=== PATIENT | male | born 1955 | race Caucasian/White ===

== ENCOUNTER 2019-11-29 14:15 | Inpatient (IN) | payer MEDICARE, OTHER ==
[~2019-11-29] VITALS: Ht 167.6 cm; Wt 97.5 kg
[2019-11-29] MEDS ORDERED: MAGNESIUM HYDROXIDE 30 ML LIQUID UDC PO PRN (16:30)
[2019-11-29] MEDS ORDERED: BLOOD SUGAR DIAGNOSTIC 1 EACH STRIP VI ONE (16:30)
[2019-11-29] MEDS ORDERED: ACETAMINOPHEN 325 MG TABLET PO PRN (16:30)
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
[2019-11-29 16:53] VITALS: BP 110/51
[2019-11-29] MEDS ORDERED: ALBUTEROL SULFATE 2.5 MG/3 ML NEBU NEB PRN (17:15)
[2019-11-29] MEDS: NICOTINE 7 MG/24HR PATCH TD SCH (18:34)
[2019-11-29] MEDS: SIMVASTATIN 10 MG TABLET PO SCH (20:13)
[2019-11-29 20:47] VITALS: BP 112/54
[2019-11-29] MEDS: TEMAZEPAM 7.5 MG CAPSULE PO PRN (21:22)
[2019-11-29] MEDS: LORAZEPAM 0.5 MG TABLET PO PRN (22:24)
--- NOTE | 2019-11-30 06:07 | NUR ---
Received Pt at the nurse's station, angry, yelling, and demanding the phone. Pt is child-like, attention-seeking and needy. Affect is labile. Denies what is written on the Hold, states "I don't know" when asked the reason for admission. Denies SI/HI at this time. Requires frequent redirection. Restoril administered for insomnia, Ativan administered for anxiety, both effective. Refused shower this morning. Compliant with medications. VS stable, denied pain.
[2019-11-30 07:30] VITALS: BP 125/68
[2019-11-30] MEDS: LORAZEPAM 0.5 MG TABLET PO PRN ×2 (08:24→12:48)
[2019-11-30] MEDS: FUROSEMIDE 40 MG TABLET PO SCH (08:24)
[2019-11-30] MEDS: SPIRONOLACTONE 25 MG TABLET PO SCH (08:24)
[2019-11-30] MEDS: ALLOPURINOL 300 MG TABLET PO SCH (08:24)
[2019-11-30] MEDS: NICOTINE 7 MG/24HR PATCH TD SCH (08:24)
[2019-11-30] MEDS: METFORMIN HCL 500 MG TABLET PO SCH ×2 (08:24→17:51)
[2019-11-30] MEDS: BACLOFEN 10 MG TABLET PO SCH (08:25)
[2019-11-30] MEDS: FERROUS SULFATE 325 MG TABEC PO SCH (08:25)
[2019-11-30] MEDS: ASPIRIN 81 MG TAB.CHEW PO SCH (08:25)
[2019-11-30] MEDS: DOCUSATE SODIUM 100 MG CAPSULE PO SCH ×2 (08:25→17:51)
[2019-11-30] MEDS: ISOSORBIDE MONONITRATE 10 MG TABLET PO SCH ×2 (08:25→17:52)
[2019-11-30] MEDS: GABAPENTIN 100 MG CAPSULE PO SCH ×3 (08:25→17:51)
[2019-11-30] MEDS ORDERED: NICOTINE 7 MG/24HR PATCH TD SCH (09:00)
--- NOTE | 2019-11-30 11:59 | NUR ---
Social Work Initial Discharge Plan Note: Patient currently resides with Imani ([phone]) at [address] [facility] [address] [facility], [place] [address]; ([phone]) and lives with roommate. Per patient, he would want to go back home. sort line worker will work the patient and the MD regarding appropriate discharge planning. sort line worker will form a safe and proper discharge.
--- NOTE | 2019-11-30 12:17 | NUR ---
Social Work Family Contact Note: pick pack worker contacted patients Imani ([phone]) and discussed patients discharge plan and treatment plan.
[2019-11-30] MEDS ORDERED: risperiDONE 0.5 MG TABLET PO SCH (13:15)
[2019-11-30] MEDS: risperiDONE 1 MG TABLET PO SCH ×2 (13:28→21:10)
--- NOTE | 2019-11-30 15:16 | NUR ---
Social Work Note/Individual Therapy: track service worker met with patient for brief counseling adressing patient suicidal thoughts. track service worker assessed for patients level of suicidality. Patient denies SI. However, patient stated that in the past he has been "hearing voices that tell him to kill himself". This underwriter assessed if patient is currently experiencing those voices. Patient denied and stated that he is not hearing those voices anymore. This underwriter provided mental health referrals to patient such as [facility] Crisis Line ( ), [place] Suicide Prevention Lifeline ( ) , [facility] Substance Abuse Helpline ( ). track service worker encouraged patient to contact either family, hotline, or a professional if patient were to have suicidal thoughts. This underwriter also encouraged patient to alert either this underwriter or the nursing staff.
[2019-11-30 15:37] VITALS: BP 106/74
[2019-11-30] MEDS: BENZTROPINE MESYLATE 0.5 MG TABLET PO SCH (17:51)
[2019-11-30] MEDS: LORAZEPAM 1 MG TABLET PO PRN (20:12)
[2019-11-30 20:33] VITALS: BP 99/66
[2019-11-30] MEDS: SIMVASTATIN 10 MG TABLET PO SCH (21:10)
--- NOTE | 2019-11-30 22:00 | NUR ---
received to care, pleasant upon approach, but mostly isolative, in his room. continues to deny suicidal ideations. PRN ativan was given around 1999 for anxiety. pt reported good effects by 2099, and took his routine medications around that time. as of 2199, he appears to be asleep. no distress noted. will continue to monitor closely.
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
--- NOTE | 2019-12-01 06:00 | NUR ---
slept 7.5 hours, total. continues to sleep. no distress noted.
[2019-12-01] MEDS: ALLOPURINOL 300 MG TABLET PO SCH (08:45)
[2019-12-01] MEDS: FUROSEMIDE 40 MG TABLET PO SCH (08:45)
[2019-12-01] MEDS: BACLOFEN 10 MG TABLET PO SCH (08:45)
[2019-12-01] MEDS: GABAPENTIN 100 MG CAPSULE PO SCH ×3 (08:45→16:31)
[2019-12-01] MEDS: BENZTROPINE MESYLATE 0.5 MG TABLET PO SCH ×2 (08:46→16:31)
[2019-12-01] MEDS: DOCUSATE SODIUM 100 MG CAPSULE PO SCH ×2 (08:46→16:31)
[2019-12-01] MEDS: ISOSORBIDE MONONITRATE 10 MG TABLET PO SCH ×2 (08:46→16:31)
[2019-12-01] MEDS: ASPIRIN 81 MG TAB.CHEW PO SCH (08:46)
[2019-12-01] MEDS: FERROUS SULFATE 325 MG TABEC PO SCH (08:46)
[2019-12-01] MEDS: NICOTINE 7 MG/24HR PATCH TD SCH (08:47)
[2019-12-01] MEDS: METFORMIN HCL 500 MG TABLET PO SCH ×2 (08:51→17:51)
[2019-12-01] MEDS: SPIRONOLACTONE 25 MG TABLET PO SCH (08:51)
[2019-12-01] MEDS: risperiDONE 1 MG TABLET PO SCH ×2 (08:51→20:26)
[2019-12-01 10:20] VITALS: BP 101/56
[2019-12-01] MEDS: LORAZEPAM 1 MG TABLET PO PRN (13:01)
[2019-12-01 14:32] LABS: BASOPHILS % (AUTO) 0.3 % (0.0-2.0); EOSINOPHILS # (AUTO) 0.1 K/uL (0.0-0.7); EOSINOPHILS % (AUTO) 1.4 % (0.0-7.0); HEMATOCRIT 42.9 % (36.7-47.1); HEMOGLOBIN 14.3 g/dL (12.5-16.3); LYMPHOCYTES # (AUTO) 1.8 K/uL (20.0-40.0); LYMPHOCYTES % (AUTO) 23.7 % (20.5-51.5); MEAN CORPUSCULAR HEMOGLOBIN 31.7 uug (23.8-33.4); MEAN CORPUSCULAR HGB CONC 33 g/dL (32.5-36.3); MEAN CORPUSCULAR VOLUME 95.3 fL (73.0-96.2); MONOCYTES # (AUTO) 0.6 K/uL (2.0-10.0); MONOCYTES % (AUTO) 8.5 % (0.0-11.0); NEUTROPHILS % (AUTO) 66.1 % (38.5-71.5); PLATELET COUNT (AUTO) 165 K/uL (152-348); RED BLOOD CELL COUNT(AUTO) 4.51 MIL/uL (4.06-5.63); WHITE BLOOD COUNT (AUTO) 7.6 K/uL (3.6-10.2)
[2019-12-01] MEDS: MAG HYDROX/AL HYDROX/SIMETH 30 ML LIQUID UDC PO PRN (14:34)
--- NOTE | 2019-12-01 14:46 | NUR ---
Patient complaint of stomach pain. mylanta 30mg prn given. MD taylor aware of c/o of pain at night. ordered norco 5-325mg every 6 hrs PRN. no complaint of pain/discomfort as of this time. will continue monitor
[2019-12-01 14:50] LABS: BILIRUBIN,TOTAL 0.2 mg/dL (0.2-1.0); MAGNESIUM 1.6 mg/dL (1.8-2.4); PHOSPHOROUS 3.5 mg/dL (2.5-4.9); POTASSIUM 4.6 mmol/L (3.5-5.1); TOTAL PROTEIN, SERUM 7.6 g/dL (6.4-8.2)
--- NOTE | 2019-12-01 15:28 | NUR ---
Patient refuse blood draw this morning. Patient reorient and education given. Patient agreed blood draw this PM. not in distress. will continue monitor
[2019-12-01 16:21] VITALS: BP 119/65
[2019-12-01] MEDS: HYDROCODONE/APAP 5-325MG TABLET PO PRN (17:52)
--- NOTE | 2019-12-01 19:18 | NUR ---
Patient applied clonidine patch for high BP every 7days. Applied on left upper back. Applied z-guard on red sacrum. will continue monitor
[2019-12-01] MEDS: POTASSIUM CHLORIDE 8 MEQ TAB.PRT.SR PO SCH (20:26)
[2019-12-01] MEDS: SIMVASTATIN 10 MG TABLET PO SCH (20:26)
[2019-12-01 20:27] VITALS: BP 101/57
[2019-12-01] MEDS: TEMAZEPAM 7.5 MG CAPSULE PO PRN (21:46)
--- NOTE | 2019-12-01 22:30 | NUR ---
received to care, pleasant upon approach, but mostly isolative, in his room. continues to deny suicidal ideations. compliant with medications and staff direction. PRN restoril was given at 2147, for insomnia. as of 2229, he appears to be asleep. no distress noted. will continue to monitor closely.
[2019-12-02] MEDS: LORAZEPAM 1 MG TABLET PO PRN ×2 (01:22→11:52)
--- NOTE | 2019-12-02 01:22 | NUR ---
PRN ativan, given for anxiety.
--- NOTE | 2019-12-02 06:51 | NUR ---
slept well. continues to sleep. no distress noted.
[2019-12-02 07:30] VITALS: BP 105/44
--- NOTE | 2019-12-02 08:05 | NUR ---
Social Work APS Report: This typewriter tester filed an APS report with [facility] (Intake ID [id number]) for concerns with living situation.
[2019-12-02] MEDS: ASPIRIN 81 MG TAB.CHEW PO SCH (08:41)
[2019-12-02] MEDS: FERROUS SULFATE 325 MG TABEC PO SCH (08:41)
[2019-12-02] MEDS: DOCUSATE SODIUM 100 MG CAPSULE PO SCH ×2 (08:41→17:11)
[2019-12-02] MEDS: BENZTROPINE MESYLATE 0.5 MG TABLET PO SCH ×2 (08:41→17:11)
[2019-12-02] MEDS: risperiDONE 1 MG TABLET PO SCH (08:41)
[2019-12-02] MEDS: SPIRONOLACTONE 25 MG TABLET PO SCH (08:42)
[2019-12-02] MEDS: NICOTINE 7 MG/24HR PATCH TD SCH (08:42)
[2019-12-02] MEDS: GABAPENTIN 100 MG CAPSULE PO SCH ×3 (08:42→17:26)
[2019-12-02] MEDS: METFORMIN HCL 500 MG TABLET PO SCH ×2 (08:42→17:11)
[2019-12-02] MEDS: BACLOFEN 10 MG TABLET PO SCH (08:42)
[2019-12-02] MEDS: FUROSEMIDE 40 MG TABLET PO SCH (08:43)
[2019-12-02] MEDS: ALLOPURINOL 300 MG TABLET PO SCH (08:43)
[2019-12-02] MEDS: POTASSIUM CHLORIDE 8 MEQ TAB.PRT.SR PO SCH (08:43)
[2019-12-02] MEDS: ISOSORBIDE MONONITRATE 10 MG TABLET PO SCH ×2 (08:46→17:00)
--- NOTE | 2019-12-02 10:03 | NUR ---
Social Work Coordination of Care Note: loft worker head spoke with Christianne Narayan ([phone]) from [address], [place] [address]; ([phone]) which is a Partial Hospitalization Program (PHP). Per Christianne, she stated that they will provide patient with transportation and explained more about the program. Per Christianne, she stated that upon discharge to call this abstract writer to schedule the program.
--- NOTE | 2019-12-02 11:39 | NUR ---
Social Work Substance Abuse Intervention Note: Patient was provided with a brief substance abuse intervention and referred to [facility] , [facility] , and [facility] . Addendum: 12/02/19 at 1406 by VENU CISNEROS Patient was provided with a brief substance abuse intervention and referred to [facility] [address] [place] [address]; ([phone]), [facility], [address], [place] [address]; ([phone]), and [facility] .
--- NOTE | 2019-12-02 11:49 | NUR ---
Social Work Note: telephone sex worker offered patient resources for [facility] Partial Hospitalization Program (PHP); ([phone]). Patient refused and became agitated. Patient stated that he "has a lot of doctor appointments to attend too". This literary writer explained with details what the program is and how it is beneficial. This literary writer also addressed that the program will provide transportation, but patient refused. This literary writer will provide with resources for patient upon discharge.
--- NOTE | 2019-12-02 13:10 | NUR ---
Social Work Coordination of Care: coffee plantation worker contacted patients center [facility] ([phone]) and was unable to reach bottle caser. This sign writer letterer or painter left a voicemail to call back.
--- NOTE | 2019-12-02 13:51 | NUR ---
Social Work Family Contact Note: trim line worker contacted patient's Imani ([phone]) and this screen writer wanted to ask more questions in regard to patients program [facility]. While this screen writer was asking questions Imani was agitated and was frustrated that "staff keeps calling her". This screen writer explained that it is hospitals duty to call and verify information that is needed.
--- NOTE | 2019-12-02 13:53 | NUR ---
Social Work Coori Addendum: 12/02/19 at 1354 by VENU CISNEROS disregard this note.
--- NOTE | 2019-12-02 13:54 | NUR ---
Social Work Coordination of Care: poultry farmworker spoke to Mariam seed corn production manager from [facility] ([phone]) who arranged patient to see his psychiatrist Dr.Gillespie Kaur on December 13 at 1PM and arranged an appointment with patients primary doctor Quincy Alejandro on December 13 at 2PM. This scientific writer also informed Mariam about [facility] ([phone]) and stated that she will arrange it. This scientific writer will fax patients H & P psychiatric notes, progress notes, and medication to Mariam ([phone]). Mariam shared that at [facility] they have programs for the patient and that he has been part of it.
[2019-12-02] MEDS: HYDROCODONE/APAP 5-325MG TABLET PO PRN (17:26)
[2019-12-02] MEDS ORDERED: OLANZAPINE 10 MG VIAL IM ONE (19:45)
[2019-12-02] MEDS ORDERED: risperiDONE 1 MG TABLET PO SCH (21:00)
[2019-12-02] MEDS: SIMVASTATIN 10 MG TABLET PO SCH (21:01)
[2019-12-02] MEDS: risperiDONE 2 MG TABLET PO SCH (21:01)
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
[2019-12-03 07:30] VITALS: BP 120/66
--- NOTE | 2019-12-03 09:51 | NUR ---
Social Work Individual Therapy Note: ice cream vault worker met with patient for brief counseling. ice cream vault worker assessed for patients level of suicidality. Patient denies SI. This automotive service writer assessed if patient is experiencing auditory hallucination as mentioned before and stated that "he hears voices that tell him to kill himself". Per patient, he stated that he is currently not hearing any voices and is not SI. This automotive service writer provided mental health referrals to patient such as [facility] Crisis Line ( ), [place] Suicide Prevention Lifeline ( ) , [facility] Substance Abuse Helpline ( ). ice cream vault worker encouraged patient to contact either family, hotline, or a professional if patient were to have suicidal thoughts. This automotive service writer also encouraged patient to alert either this automotive service writer or the nursing staff.
[2019-12-03] MEDS: NICOTINE 7 MG/24HR PATCH TD SCH (09:55)
[2019-12-03] MEDS: ALLOPURINOL 300 MG TABLET PO SCH (09:56)
[2019-12-03] MEDS: ISOSORBIDE MONONITRATE 10 MG TABLET PO SCH ×2 (09:56→16:51)
[2019-12-03] MEDS: BACLOFEN 10 MG TABLET PO SCH (09:56)
[2019-12-03] MEDS: GABAPENTIN 100 MG CAPSULE PO SCH ×3 (09:56→16:50)
[2019-12-03] MEDS: DOCUSATE SODIUM 100 MG CAPSULE PO SCH ×2 (09:56→16:52)
[2019-12-03] MEDS: POTASSIUM CHLORIDE 8 MEQ TAB.PRT.SR PO SCH (09:56)
[2019-12-03] MEDS: BENZTROPINE MESYLATE 0.5 MG TABLET PO SCH ×2 (09:57→16:52)
[2019-12-03] MEDS: FERROUS SULFATE 325 MG TABEC PO SCH (09:57)
[2019-12-03] MEDS: risperiDONE 2 MG TABLET PO SCH ×2 (09:57→20:05)
[2019-12-03] MEDS: SPIRONOLACTONE 25 MG TABLET PO SCH (09:58)
[2019-12-03] MEDS: METFORMIN HCL 500 MG TABLET PO SCH ×2 (09:58→16:51)
[2019-12-03] MEDS: ASPIRIN 81 MG TAB.CHEW PO SCH (09:59)
[2019-12-03] MEDS: FUROSEMIDE 40 MG TABLET PO SCH (09:59)
--- NOTE | 2019-12-03 10:00 | NUR ---
Social Work PC Hearing Notification Note: wafer production lead worker contacted patient's Imani ([phone]), and notified patients probable cause of hearing today. This technical publications writer left a voicemail.
--- NOTE | 2019-12-03 12:25 | NUR ---
Social Work Note: dairy cattle farm worker met with patient and patient stated that yesterday he was combative because he only wanted his "ativan". Patient stated that "everyone is trying to keep him away from his ". This food writer explained that no one is keeping him from his . This food writer actively listened and provided emotional support.
[2019-12-03] MEDS: LORAZEPAM 1 MG TABLET PO PRN (12:53)
[2019-12-03 16:00] VITALS: BP 108/70
[2019-12-03] MEDS: HYDROCODONE/APAP 5-325MG TABLET PO PRN (18:25)
[2019-12-03] MEDS: SIMVASTATIN 10 MG TABLET PO SCH (20:05)
[2019-12-03 20:25] VITALS: BP 124/65
[2019-12-03] MEDS: TEMAZEPAM 7.5 MG CAPSULE PO PRN (22:01)
[2019-12-04] MEDS: LORAZEPAM 1 MG TABLET PO PRN (00:13)
[2019-12-04 07:30] VITALS: BP 128/69
[2019-12-04] MEDS: GABAPENTIN 100 MG CAPSULE PO SCH ×3 (09:23→17:52)
[2019-12-04] MEDS: BENZTROPINE MESYLATE 0.5 MG TABLET PO SCH ×2 (09:23→17:52)
[2019-12-04] MEDS: DOCUSATE SODIUM 100 MG CAPSULE PO SCH ×2 (09:23→17:52)
[2019-12-04] MEDS: METFORMIN HCL 500 MG TABLET PO SCH ×2 (09:24→17:52)
[2019-12-04] MEDS: ASPIRIN 81 MG TAB.CHEW PO SCH (09:24)
[2019-12-04] MEDS: risperiDONE 2 MG TABLET PO SCH ×2 (09:24→20:01)
[2019-12-04] MEDS: FERROUS SULFATE 325 MG TABEC PO SCH (09:24)
[2019-12-04] MEDS: ISOSORBIDE MONONITRATE 10 MG TABLET PO SCH ×2 (09:28→17:00)
[2019-12-04] MEDS: BACLOFEN 10 MG TABLET PO SCH (09:29)
[2019-12-04] MEDS: FUROSEMIDE 40 MG TABLET PO SCH (09:29)
[2019-12-04] MEDS: ALLOPURINOL 300 MG TABLET PO SCH (09:29)
[2019-12-04] MEDS: SPIRONOLACTONE 25 MG TABLET PO SCH (09:29)
[2019-12-04] MEDS: NICOTINE 7 MG/24HR PATCH TD SCH (09:29)
[2019-12-04] MEDS: POTASSIUM CHLORIDE 8 MEQ TAB.PRT.SR PO SCH (09:29)
--- NOTE | 2019-12-04 11:19 | NUR ---
Social Work Family Contact Note: remelt worker contacted patient's Imani ([phone]) and stated if she is able to provide transportation either a family molded goods spot picker or taxi. Per Imani, she stated that she is unable to drive and that she does not have any money to provide transportation.
--- NOTE | 2019-12-04 11:20 | NUR ---
Social Work Note: wheel worker contacted Mariam patient's showcase trimmer from [facility] ([phone]) but was unable to reach. This comic writer left a voicemail in regard to if they will provide transportation for patient back home. This comic writer also contacted [facility] ([phone]) and spoke to Trisha who stated that they do not provide transportation and that the hospital should provide it.
--- NOTE | 2019-12-04 11:52 | NUR ---
Social Work Coordination of Care: laundry worker spoke to Minifer on-call lead dental assistant from [facility] ([phone]) and this investigative writer addressed if they are able to provide transportation, she stated that she will have to confirm this with her solution manager and will get back to this investigative writer.
--- NOTE | 2019-12-04 12:57 | NUR ---
Social Work Coordination of Care: ostrich farm worker was contacted by [facility]'s Vendor Helen ([phone]) who stated that they will provide transportation for patient at 10-11AM.
--- NOTE | 2019-12-04 13:17 | NUR ---
Social Work Coordination of Care: fire crew worker contacted Cecy from [facility] ([phone]) who approved.
--- NOTE | 2019-12-04 14:25 | NUR ---
Social Work Family Contact: hot iron worker contacted patient's Imani ([phone]) and shared that [facility] will provide patient's transportation on 11/08/19.
[2019-12-04 17:23] VITALS: BP 105/66
[2019-12-04] MEDS: SIMVASTATIN 10 MG TABLET PO SCH (20:01)
[2019-12-04 21:07] VITALS: BP 137/70
[2019-12-04] MEDS: TEMAZEPAM 7.5 MG CAPSULE PO PRN (22:37)
[2019-12-05] MEDS: LORAZEPAM 1 MG TABLET PO PRN (00:38)
[2019-12-05] MEDS: MAG HYDROX/AL HYDROX/SIMETH 30 ML LIQUID UDC PO PRN ×2 (00:38→21:22)
[2019-12-05 07:30] VITALS: BP 103/66
[2019-12-05] MEDS: BENZTROPINE MESYLATE 0.5 MG TABLET PO SCH ×2 (09:17→16:54)
[2019-12-05] MEDS: DOCUSATE SODIUM 100 MG CAPSULE PO SCH ×2 (09:17→16:54)
[2019-12-05] MEDS: SPIRONOLACTONE 25 MG TABLET PO SCH (09:18)
[2019-12-05] MEDS: ASPIRIN 81 MG TAB.CHEW PO SCH (09:18)
[2019-12-05] MEDS: risperiDONE 2 MG TABLET PO SCH ×2 (09:18→20:07)
[2019-12-05] MEDS: NICOTINE 7 MG/24HR PATCH TD SCH (09:19)
[2019-12-05] MEDS: POTASSIUM CHLORIDE 8 MEQ TAB.PRT.SR PO SCH (09:19)
[2019-12-05] MEDS: ALLOPURINOL 300 MG TABLET PO SCH (09:19)
[2019-12-05] MEDS: BACLOFEN 10 MG TABLET PO SCH (09:20)
[2019-12-05] MEDS: FUROSEMIDE 40 MG TABLET PO SCH (09:20)
[2019-12-05] MEDS: ISOSORBIDE MONONITRATE 10 MG TABLET PO SCH ×2 (09:21→16:56)
[2019-12-05] MEDS: GABAPENTIN 100 MG CAPSULE PO SCH ×3 (09:29→16:54)
[2019-12-05] MEDS: FERROUS SULFATE 325 MG TABEC PO SCH (09:31)
[2019-12-05] MEDS: METFORMIN HCL 500 MG TABLET PO SCH ×2 (09:32→18:04)
[2019-12-05 16:00] VITALS: BP 111/60
[2019-12-05 20:00] VITALS: BP 122/69
[2019-12-05] MEDS: SIMVASTATIN 10 MG TABLET PO SCH (20:07)
[2019-12-05] MEDS: TEMAZEPAM 7.5 MG CAPSULE PO PRN (22:09)
[2019-12-06] MEDS: LORAZEPAM 1 MG TABLET PO PRN ×3 (02:36→20:55)
[2019-12-06 07:30] VITALS: BP 110/72
[2019-12-06] MEDS: FERROUS SULFATE 325 MG TABEC PO SCH (08:43)
[2019-12-06] MEDS: DOCUSATE SODIUM 100 MG CAPSULE PO SCH ×2 (08:43→16:17)
[2019-12-06] MEDS: risperiDONE 2 MG TABLET PO SCH ×2 (08:43→21:53)
[2019-12-06] MEDS: GABAPENTIN 100 MG CAPSULE PO SCH ×3 (08:43→16:19)
[2019-12-06] MEDS: METFORMIN HCL 500 MG TABLET PO SCH ×2 (08:43→17:24)
[2019-12-06] MEDS: ASPIRIN 81 MG TAB.CHEW PO SCH (08:43)
[2019-12-06] MEDS: BENZTROPINE MESYLATE 0.5 MG TABLET PO SCH ×2 (08:44→16:18)
[2019-12-06] MEDS: NICOTINE 7 MG/24HR PATCH TD SCH (08:44)
[2019-12-06] MEDS: ISOSORBIDE MONONITRATE 10 MG TABLET PO SCH ×2 (08:45→16:17)
[2019-12-06] MEDS: POTASSIUM CHLORIDE 8 MEQ TAB.PRT.SR PO SCH (08:45)
[2019-12-06] MEDS: BACLOFEN 10 MG TABLET PO SCH (08:46)
[2019-12-06] MEDS: FUROSEMIDE 40 MG TABLET PO SCH (08:46)
[2019-12-06] MEDS: SPIRONOLACTONE 25 MG TABLET PO SCH (08:46)
[2019-12-06] MEDS: ALLOPURINOL 300 MG TABLET PO SCH (08:46)
[2019-12-06 16:00] VITALS: BP 114/76
[2019-12-06] MEDS: HYDROCODONE/APAP 5-325MG TABLET PO PRN (16:16)
[2019-12-06 20:39] VITALS: BP 114/74
[2019-12-06] MEDS: SIMVASTATIN 10 MG TABLET PO SCH (20:55)
--- NOTE | 2019-12-06 20:55 | NUR ---
pt was offered ativan, but he refused, spitting it out. med was wasted in the pyxis, but i was unable to undo in the emar
[2019-12-06] MEDS: TEMAZEPAM 7.5 MG CAPSULE PO PRN (22:30)
--- NOTE | 2019-12-06 23:30 | NUR ---
received to care, pleasant, but anxious and needy, upon approach. PRN restoril was given at 2229 for anxiety. as of 2329, he appears to be asleep. no distress noted. will continue to monitor closely.
[2019-12-07] MEDS: LORAZEPAM 1 MG TABLET PO PRN (02:20)
--- NOTE | 2019-12-07 05:00 | NUR ---
slept 3 hours. continues to sleep. no distress noted.
[2019-12-07 07:30] VITALS: BP 127/66
--- NOTE | 2019-12-07 08:08 | NUR ---
Social Work Discharge Note: Patient will be discharged home to [address], [place] [address]; ([phone]). Patients [facility] Vendor Helen ([phone]) will provide transportation for patient at 10-11AM. Patients Imani ([phone]) is agreeable with patients discharge plan. Upon discharge, patient appear to be calm, cooperative and happy to be going home. Patient denies suicidal and homicidal ideation. Patient will follow up with his primary and psychiatrist at [facility] [address] [place] [address]; ([phone]). manager workers compensation spoke to Mariam director case management from [facility] ([phone]) who arranged patient to see his (psychiatrist) Dr.Gillespie Kaur on December 13 at 1PM and arranged an appointment with patients (primary doctor) Quincy Alejandro on December 13 at 2PM and will to discuss smoking cessation and address substance abuse dependency. Patient was provided with a brief substance abuse intervention and referred to [facility] [address] [facility], [place] [address]; ([phone]), [facility], [address], [place] [address]; ([phone]), and [facility] . Patient was also provided with resources for [facility] Care (Partial Hospitalization Program (PHP); [phone]). manager workers compensation spoke to Cecy ([phone]) scheduled home health services through [facility] [address], [address], [place] [address] and a nurse will be sent to evaluate patient on 12/08/2019. Patient was provided with outpatient mental health resources to [facility] Crisis Line , and the National Suicide Prevention Lifeline . Patient presented with euthymic mood and congruent affect.
--- NOTE | 2019-12-07 08:09 | NUR ---
Social Work Firearms Report: Data Support Analyst completed and submitted a [employer] firearms report for [address] grave disability certification. A copy of report has been placed in patient chart.
[2019-12-07] MEDS: GABAPENTIN 100 MG CAPSULE PO SCH (09:24)
[2019-12-07] MEDS: ALLOPURINOL 300 MG TABLET PO SCH (09:24)
[2019-12-07] MEDS: NICOTINE 7 MG/24HR PATCH TD SCH (09:24)
[2019-12-07 09:25] VITALS: BP 127/66
[2019-12-07] MEDS: POTASSIUM CHLORIDE 8 MEQ TAB.PRT.SR PO SCH (09:25)
[2019-12-07] MEDS: FERROUS SULFATE 325 MG TABEC PO SCH (09:25)
[2019-12-07] MEDS: ISOSORBIDE MONONITRATE 10 MG TABLET PO SCH (09:25)
[2019-12-07] MEDS: BACLOFEN 10 MG TABLET PO SCH (09:25)
[2019-12-07] MEDS: SPIRONOLACTONE 25 MG TABLET PO SCH (09:25)
[2019-12-07] MEDS: BENZTROPINE MESYLATE 0.5 MG TABLET PO SCH (09:26)
[2019-12-07] MEDS: DOCUSATE SODIUM 100 MG CAPSULE PO SCH (09:26)
[2019-12-07] MEDS: risperiDONE 2 MG TABLET PO SCH (09:26)
[2019-12-07] MEDS: ASPIRIN 81 MG TAB.CHEW PO SCH (09:26)
[2019-12-07] MEDS: FUROSEMIDE 40 MG TABLET PO SCH (09:26)
[2019-12-07] MEDS: METFORMIN HCL 500 MG TABLET PO SCH (09:27)
--- NOTE | 2019-12-07 10:30 | NUR ---
Nurse Discharge Note: Patient discharged in stable condition. Picked up by staff from [facility] and transported with private vehicle back to his private home. Patient's belongings inventoried and returned to patient. Patient provided with education about follow up care, medications, and discharge instructions, he is able to verbalize understanding. Patient provided with printed educational material, discharge instructions, and prescriptions. Patient educated about importance of remaining medication adherent, able to verbalize understanding. Patient denies SI/HI. Patient escorted off unit accompanied by RN in wheelchair.
--- NOTE | 2019-12-07 10:50 | NUR ---
Received patient awake, alert and oriented in his assigned bed. Bed is in low and locked position. Patient is calm, cooperative, and redirectable. Patient denies SI/HI, denies AH/VH. Patient is medication adherent, no adverse reaction noted. Patient is able to ambulate independently with FWW. Able to perform self care and ADL's independently with staff supervision. Educated about impulse control and communicating needs to staff appropriately.
--- NOTE | 2019-12-07 11:01 | NUR ---
Patient admitted with abrasion on Right great toe. No odor, no signs or symptoms of infection, no drainage, no bleeding. Cleansed and covered with nonsterile dressing. No complaints of pain or discomfort. Patient is refusing to have photo taken to be placed in chart.
== END 2019-12-07 10:30 | disposition home health service (06) | DRG 885 ==
LOC: ER 14:15 → GPS 16:18
PROVIDERS: ADMIT Psychiatry & Neurology Psychosomatic Medicine; ATTEND Hospitalist
DX: F25.0 Schizoaffective disorder, bipolar type (principal); F70 Mild intellectual disabilities; E66.9 Obesity, unspecified; Z68.35 Body mass index [BMI] 35.0-35.9, adult; J44.9 Chronic obstructive pulmonary disease, unspecified; E78.5 Hyperlipidemia, unspecified; Z90.49 Acquired absence of other specified parts of digestive tract; F17.210 Nicotine dependence, cigarettes, uncomplicated; I10 Essential (primary) hypertension; G30.9 Alzheimer's disease, unspecified; F02.80 Dementia in other diseases classified elsewhere, unspecified severity, without behavioral disturbance, psychotic disturbance, mood disturbance, and anxiety; Z79.84 Long term (current) use of oral hypoglycemic drugs; Z91.5 Personal history of self-harm; Z79.899 Other long term (current) drug therapy; E11.9 Type 2 diabetes mellitus without complications
CPT/HCPCS: 36415; 71045; 83735; 84100; 85025; A4663; A9150; J2358